=== PATIENT | male | born 2000 | race Caucasian/White ===

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

== ENCOUNTER 2019-11-24 21:32 | Emergency (ER) | payer SELFPAY ==
[~2019-11-24] VITALS: Ht 172.7 cm; Wt 55.8 kg
[2019-11-24 22:39] VITALS: Ht 172.7 cm; Wt 55.8 kg
[2019-11-25 00:42] VITALS: BP 113/66
== END 2019-11-25 00:56 | disposition home or self-care (01) ==
LOC: ED 21:32
DX: R05 Cough (principal); R09.89 Other specified symptoms and signs involving the circulatory and respiratory systems; J45.909 Unspecified asthma, uncomplicated
CPT/HCPCS: J7512